=== PATIENT | male | born 1940 | race Caucasian/White ===

== ENCOUNTER 2019-01-29 10:35 | Emergency (ER) | payer MEDICARE, MEDICAID ==
[2019-01-29 11:16] LABS: % BASOPHILS 1.1 % (0.0-2.0); % EOSINOPHILS 7.7 % (0.0-5.0); % LYMPHOCYTES 20.5 % (20.0-50.0); % MONOCYTES 7.4 % (2.0-10.0); % NEUTROPHILS 63.3 % (40.0-80.0); BASOPHILE ABSOLUTE 0.1 Th/cumm (0-0.2); EOSINOPHILE ABSOLUTE 0.7 Th/cmm (0.1-0.4); HEMATOCRIT 38.8 % (41.0-60); HEMOGLOBIN 13.2 gm/dL (12-16); LYMPHOCYTE ABSOLUTE 1.9 Th/cmm (1.5-3.0); MEAN CELL VOLUME 90.3 fl (80-99); MEAN CORPUSCULAR HEMOGLOBIN 30.7 pg (27.0-31.0); MEAN PLATELET VOLUME 7.8 fl; MONOCYTE ABSOLUTE 0.7 Th/cmm (0.3-1.0); PLATELET COUNT 247 Th/cmm (150-400); RED CELL DISTRIBUTION WIDTH 13.3 % (11.5-20.0); WHITE BLOOD COUNT 9.4 Th/cmm (4.8-10.8)
--- NOTE | 2019-01-29 11:25 | ED Physician Chart ---
ED Chief Complaint/HPI - Patient Information Date Seen:: 01/29/19 Time Seen:: 11:00 Chief Complaint:: weakness History of Present Illness:: this is a 78 yo custodial patient sent in for evaluation and treatment of his weakness. Allergies:: Allergies Allergy/AdvReac Type Severity Reaction Status Date / Time No Known Allergies Allergy Verified 01/29/19 10:40 Vitals:: Vital Signs - 8 hr 01/29/19 10:40 Temp 98.1 F HR 62 RR 18 BP 97/65 O2 Sat % 95 Historian:: EMS, Medical Records Review:: Nurse's Note Reviewed, Old Chart Reviewed ED Review of Systems - Review of Systems General/Constitutional: No fever, No chills, No weight loss, No weakness, No diaphoresis, No edema, No loss of appetite, Other (this patient is unable to give a review of systems.) Skin: No skin lesions, No rash, No bruising Head: No headache, No light-headedness Eyes: No loss of vision, No pain, No diplopia ENT: No earache, No nasal drainage, No sore throat, No tinnitus Neck: No neck pain, No swelling, No thyromegaly, No stiffness, No mass noted Cardio Vascular: No chest pain, No palpitations, No PND, No orthopnea, No edema Pulmonary: No SOB, No cough, No sputum, No wheezing GI: No nausea, No vomiting, No diarrhea, No pain, No melena, No hematochezia, No constipation, No hematemesis G/U: No dysuria, No frequency, No hematuria Musculoskeletal: No bone or joint pain, No back pain, No muscle pain Endocrine: No polyuria, No polydipsia Psychiatric: No prior psych history, No depression, No anxiety, No suicidal ideation Hematopoietic: No bruising, No lymphadenopathy Allergic/Immuno: No urticaria, No angioedema Neurological: No syncope, No focal symptoms, No weakness, No paresthesia, No headache, No seizure, No dizziness, No confusion, No vertigo ED Past Medical History - Past Medical History Obtainable: Yes Past Medical History: HTN, PUD/GERD, Dementia, Other (gout) Family History: None Social History: Non Smoker, No Alcohol, No Drug Use, Care Facility Surgical History: None (unknown) Family Medical History - Family Member Father History Unknown: Yes Ethnicity: ED Physical Exam - Physical Examination General/Constitutional: Awake, Well-developed, well-nourished, Alert, No distress, GCS 15, Non-toxic appearing, Ambulatory Other Gen/Cons comments:: this patient is unable to think and speak correctly Head: Atraumatic Eyes: Lids, conjuctiva normal, PERRL, EOMI Skin: Nl inspection, No rash, No skin lesions, No ecchymosis, Well hydrated, No lymphadenopathy ENMT: External ears, nose nl, Nasal exam nl, Lips, teeth, gums nl Neck: Nontender, Full ROM w/o pain, No JVD, No nuchal rigidity, No bruit, No mass, No stridor Respiratory: Nl effort/Exclusion, Clear to Auscultation, No Wheeze/Rhonchi/Rales Cardio Vascular: RRR, No murmur, gallop, rubs, NL S1 S2 GI: No tenderness/rebounding/guarding, No organomegaly, No hernia, Normal BS's, Nondistended, No mass/bruits, No McBurney tenderness : No CVA tenderness Extremities: No tenderness or effusion, Full ROM, normal strength in all extremities, No edema, Normal digits & nails Other Extremities comments:: significant muscle wasting of all four extremities Neuro/Psych: Alert/oriented, DTR's symmetric, Normal sensory exam, Normal motor strength, Judgement/insight normal, Mood normal, Normal gait, No focal deficits Misc: Normal back, No paraspinal tenderness ED Labs/Radiology/EKG Results - Lab Results Results: Abnormal Lab Results 01/29/19 01/29/19 01/29/19 11:00 11:00 11:00 WBC 9.4 RBC 4.30 Hgb 13.2 Hct 38.8 L MCV 90.3 MCH 30.7 MCHC Differential 34.0 RDW 13.3 Plt Count 247 MPV 7.8 Neutrophils % 63.3 Lymphocytes % 20.5 Monocytes % 7.4 Eosinophils % 7.7 H Basophils % 1.1 PT 11.0 INR 1.06 PTT (Actin FS) 27.6 Sodium 145 Potassium 3.3 L Chloride 112 H Carbon Dioxide 25.8 Anion Gap 10.5 BUN 22 Creatinine 0.9 Est GFR ( Amer) TNP Est GFR (Non-Af Amer) TNP BUN/Creatinine Ratio 24.4 Glucose 106 H Calcium 10.0 Total Bilirubin 0.4 AST 14 ALT 16 Alkaline Phosphatase 48 Troponin I Total Protein 7.1 Albumin 3.5 L Globulin 3.6 Albumin/Globulin Ratio 1.0 TSH Urine Source Urine Color Urine Clarity Urine pH Ur Specific [place] Urine Protein Urine Glucose (UA) Urine Ketones Urine Blood Urine Nitrate Urine Bilirubin Urine Urobilinogen Ur Leukocyte Esterase Urine RBC Urine WBC Ur Epithelial Cells Urine Bacteria Urine Mucus 01/29/19 01/29/19 01/29/19 11:00 11:00 11:30 WBC RBC Hgb Hct MCV MCH MCHC Differential RDW Plt Count MPV Neutrophils % Lymphocytes % Monocytes % Eosinophils % Basophils % PT INR PTT (Actin FS) Sodium Potassium Chloride Carbon Dioxide Anion Gap BUN Creatinine Est GFR ( Amer) Est GFR (Non-Af Amer) BUN/Creatinine Ratio Glucose Calcium Total Bilirubin AST ALT Alkaline Phosphatase Troponin I 0.02 Total Protein Albumin Globulin Albumin/Globulin Ratio TSH 1.38 Urine Source CLEAN C Urine Color YELLOW Urine Clarity CLEAR Urine pH 6.0 Ur Specific [place] 1.025 Urine Protein NEGATIVE Urine Glucose (UA) NEGATIVE Urine Ketones NEGATIVE Urine Blood SMALL H Urine Nitrate NEGATIVE Urine Bilirubin NEGATIVE Urine Urobilinogen 0.2 Ur Leukocyte Esterase TRACE H Urine RBC 2-5 H Urine WBC 6-10 Ur Epithelial Cells NONE SEEN Urine Bacteria FEW Urine Mucus FEW - Radiology Results Results: chest x-ray = nad - EKG Interpretations EKG Time:: 11:09 Rate & Rhythm: rate=59, sinus [place]: right ED Assessment - Assessment General Assessment: weakness ED Septic Shock - . Is Septic Shock (SBP<90, OR Lactate>4 mmol\L) present?: No - <6hrs of presentation: Vital Signs: Vital Signs - 8 hr 01/29/19 10:40 Temp 98.1 F HR 62 RR 18 BP 97/65 O2 Sat % 95 ED Reassessment (Disposition) - Reassessment Reassessment Condition:: Unchanged, Improved - Diagnosis Diagnosis:: hypokalemia - Aftercare/Follow up Instructions Aftercare/Follow-Up Instructions:: Counseled pt regarding lab results/diagnosis & need follow up, Refer to Discharge Instructions, Counseled pt & family regarding lab results/diagnosis & need follow up - Patient Disposition Discharge/Transfer:: Shelter Care - SNF
[2019-01-29 12:03] LABS: ALBUMIN 3.5 gm/dL (4.2-5.5); ALKALINE PHOSPHATASE 48 U/L (34-104); ANION GAP 10.5 (7.0-16.0); BILIRUBIN,TOTAL 0.4 mg/dL (0.3-1.0); BUN - UREA NITROGEN 22 mg/dL (7-25); CARBON DIOXIDE 25.8 mEq/L (21.0-31.0); CHLORIDE 112 mEq/L (98-107); CREATININE - SERUM 0.9 mg/dL (0.7-1.3); GLUCOSE 106 mg/dL (70-105); POTASSIUM SERUM 3.3 mEq/L (3.5-5.1); SGOT 14 U/L (13-39); SGPT/ALT 16 U/L (7-52); SODIUM SERUM 145 mEq/L (136-145); TOTAL PROTEIN,SERUM 7.1 gm/dL (6.0-8.3)
[2019-01-29 12:05] LABS: URINE SOURCE CLEAN C
[2019-01-29 12:10] LABS: URINE BILIRUBIN NEGATIVE (NEGATIVE); URINE BLOOD SMALL (NEGATIVE); URINE GLUCOSE (UA) NEGATIVE (NEGATIVE); URINE KETONE NEGATIVE (NEGATIVE); URINE LEUKOCYTE ESTERASE TRACE (NEGATIVE); URINE MICROSCOPIC INDICATED? YES; URINE NITRATE NEGATIVE (NEGATIVE); URINE PROTEIN NEGATIVE (NEGATIVE); URINE UROBILINOGEN 0.2 E.U./dL (0.2 - 1.0)
[2019-01-29] MEDS ORDERED: Potassium Chloride Elixir 20 mEq /15 mL UDC PO ONE (12:11)
[2019-01-29 12:12] LABS: URINE CLARITY CLEAR (CLEAR); URINE COLOR YELLOW
[2019-01-29] MEDS ORDERED: Potassium Chloride Elixir 20 mEq /15 mL UDC ONE (12:14)
[2019-01-29 12:21] LABS: URINE BACTERIA FEW /hpf (NONE SEEN); URINE EPITHELIAL CELLS NONE SEEN /lpf (FEW)
[2019-01-29 12:48] LABS: INR 1.06 (0.5-1.4)
--- NOTE | 2019-01-30 10:48 | Diagnostic Imaging Report ---
CHEST X-RAY: AP view INDICATION: pain COMPARISON: None FINDINGS: Chronic interstitial changes are seen with left mid to upper lung zone infiltrates. No effusions. Heart size is normal. Atherosclerosis is noted. Osseous structures are intact. IMPRESSION: Chronic interstitial lung changes. Superimposed interstitial infiltrate cannot be excluded. More confluent left upper lobe infiltrate is noted. This may be due to infectious pneumonia, however, clinical correlation and follow-up is recommended to ensure resolution and rule out neoplastic process. If indicated, short-term CT chest may also be obtained.
== END 2019-01-29 13:07 ==
LOC: ER 10:35
DX: E87.6 Hypokalemia (principal); R53.1 Weakness; I10 Essential (primary) hypertension; F03.90 Unspecified dementia, unspecified severity, without behavioral disturbance, psychotic disturbance, mood disturbance, and anxiety; K21.9 Gastro-esophageal reflux disease without esophagitis
CPT/HCPCS: 36415-UA; 71045-TC; 80053-TC; 81001-TC; 84443-TC; 84484-TC; 85025-TC; 85610-TC; 85730-TC; 93005